=== PATIENT | female | born 1965 | race Caucasian/White ===

== ENCOUNTER → 2021-03-31 11:07 | Outpatient (CLI) | payer BC, SELFPAY ==
--- NOTE | 2021-03-31 11:15 | XR_ITS ---
PROCEDURE: XR CHEST 2V CLINICAL HISTORY: DECREASED BREATH SOUNDS COMPARISON: CR CXR CHEST(2 VIEWS-NOT PORTABLE) from 01/26/2013 FINDINGS: The cardiomediastinal silhouette and pulmonary vascularity are within normal limits. The lungs are clear without infiltrates, suspicious nodules, or pleural effusions. Calcified granulomas are present in the left midlung. Mild degenerative change lower thoracic spine. IMPRESSION: No change no acute finding Dictated by: Shaheen Mancuso MD 03/31/2021 17:01 Shaheen Mancuso MD in [place] 03/31/2021 17:01
== END ==
PROVIDERS: PCP Nurse Practitioner; Visit Provider Nurse Practitioner
DX: R06.89 Other abnormalities of breathing (principal)
CPT/HCPCS: 71046

== ENCOUNTER → 2021-12-30 13:35 | Outpatient (CLI) | payer BC, SELFPAY ==
--- NOTE | 2021-12-30 13:40 | XR_ITS ---
FINAL REPORT CLINICAL HISTORY: SOB ON EXERTION, left chest pain COMPARISON: March 31, 2021 FINDINGS: Two views of the chest were obtained. The heart size and pulmonary vascularity are within normal limits. The mediastinum is normal. There are mild bibasilar opacities consistent with atelectasis or scarring. There is no pneumothorax. The bony thorax is intact. IMPRESSION: Mild bibasilar atelectasis or scarring. Reviewed, Interpreted and Dictated by Malick Shaw III, MD Transcribed by Joselito Luna Authenticated and [facility]
--- NOTE | 2021-12-30 14:26 | ECG_ITS ---
APPROVED REPORT Exam: Resting ECG HR:78 bpm ECG Measurements Heart Rate 78 AXES ID 160 P 4 QRSd 103 QRS -3 QT 362 T 16 QTc 396 Conclusion SINUS RHYTHM NORMAL ECG UNCONFIRMED REPORT Electronically signed by : Issa Diaz MD 12/31/2021 17:41:27
[2021-12-30 18:50] LABS: Basophils % 0.3 % (0.1-2.0); Eosinophils # 0.2 K/mm3 (0.0-0.4); Hematocrit 45.4 % (37.0-47.0); Hemoglobin 15.6 g/dL (12.2-16.2); Lymphocytes # 2.3 K/mm3 (0.7-4.5); Lymphocytes % 27.7 % (10-50); Mean Corpuscular HGB Conc 34.3 g/dL (31.8-35.4); Mean Corpuscular Hemoglobin 29.2 pg (27.0-31.2); Mean Corpuscular Volume 85.1 fl (81-99); Mean Platelet Volume 8.4 fl (7.4-10.4); Monocytes # 0.4 K/mm3 (0.1-1.0); Monocytes % 4.7 % (1.7-9.3); Neutrophils # 5.3 K/mm3 (1.8-7.8); Neutrophils % 65.3 % (37.0-80.0); Platelet Count 338 K/mm3 (142-424); Red Blood Count 5.33 M/mm3 (4.20-5.40); White Blood Count 8.2 K/mm3 (4.8-10.8)
[2021-12-30 18:54] LABS: Chloride 105 mmol/L (98-107); Potassium 4.5 mmoL/L (3.5-5.1); Sodium 138 mmol/L (136-145)
[2021-12-30 18:56] LABS: Blood Urea Nitrogen 14 mg/dl (7-17); Estimated Glomerular Filt Rate 103 ml/min (>60); GFR (African American) 125 ML/MIN (>60)
[2021-12-30 18:57] LABS: Alanine Aminotransferase 25 U/L (12-78); Albumin Level 4.3 g/dl (3.5-5.0); Albumin/Globulin Ratio 1.6 (1.1-1.8); Alkaline Phosphatase 120 U/L (38-126); Anion Gap 11.5 mEq/L (5-15); Aspartate Amino Transferase 29 U/L (14-36); Bilirubin,Total 0.4 mg/dl (0.2-1.3); Calcium 9.8 mg/dl (8.4-10.2); Carbon Dioxide 26 mmol/L (22.0-30.0); Cholesterol 245 mg/dl (140-200); Globulin 2.7 g/dL (1.3-3.2); Glucose 144 mg/dl (74-100); Triglycerides 194 mg/dl (30-150); VLDL Cholesterol 39 mg/dL (0-40)
[2021-12-30 18:58] LABS: Chol/HDL Ratio 5.3 (1-3.5); HDL Cholesterol 46 mg/dl (40-60)
[2021-12-30 19:28] LABS: Thyroid Stimulating Hormone 0.46 uIU/mL (0.465-4.68)
[2021-12-30 19:30] LABS: Direct LDL Cholesterol 162.02 mg/dL (100-129)
[2021-12-30 19:37] LABS: Hemoglobin A1C 7.1 % (4.0-6.0)
== END ==
PROVIDERS: PCP Nurse Practitioner; Visit Provider Nurse Practitioner
DX: R06.02 Shortness of breath (principal); R07.89 Other chest pain
CPT/HCPCS: 71046; 80053; 80061; 83036; 83880; 84443; 85025; 93005

== ENCOUNTER → 2021-12-31 06:45 | Outpatient (CLI) | payer BC, SELFPAY | PROVIDERS: PCP Nurse Practitioner; Visit Provider Nurse Practitioner | DX: R07.89 Other chest pain (principal); R06.02 Shortness of breath ==